=== PATIENT | male | born 2000 | race Caucasian/White ===

== ENCOUNTER 2021-10-18 17:29 | Emergency (ER) | payer OTHER ==
[~2021-10-18] VITALS: Ht 264.2 cm; Wt 70.5 kg
[2021-10-18 17:42] VITALS: TEMP 99.7
[2021-10-18 18:50] VITALS: BP 133/76; PULSE 99
== END 2021-10-18 18:50 | disposition home or self-care (01) ==
LOC: COL.ER 17:29
DX: U07.1 COVID-19 (principal)